=== PATIENT | female | born 1975 | race Caucasian/White ===

== ENCOUNTER → 2019-09-12 | Outpatient (CLI) | payer OTHER ==
--- NOTE | 2019-09-12 12:03 | REP ---
CT temporal bones/IACs: 09/12/2019. Indication: Cholesteatoma. Comparison: None. Technique: Unenhanced high-resolution axial CT images of the temporal bones/IACs were performed with coronal reconstructions provided. Findings: Soft tissue is present within the epitympanum bilaterally without ossicular erosion. The tegmen tympani are intact bilaterally. Bilateral mastoid effusions are present without coalescence. The inner ear structures are unremarkable without evidence of semicircular canal dehiscence. There is no carotid artery aberrancy. The IACs and cerebellopontine/medullary angles are unremarkable. Periosteal mucosal thickening is noted within the inferior left maxillary sinus. Impression: Abnormal soft tissue within the epitympanum of the middle ear cavities bilaterally without ossicular erosion. Cholesteatoma, inflammatory sequelae and additional etiologies are considered. Please correlate with history and direct inspection. Electronically Signed by Ashkan Neff DO 09/12/2019 11:55 A
== END ==
LOC: M RAD 09:27
PROVIDERS: ATTEND Otolaryngology
DX: H71.01 Cholesteatoma of attic, right ear (principal); H74.8X3 Other specified disorders of middle ear and mastoid, bilateral